=== PATIENT | male | born 2000 | race Caucasian/White ===

== ENCOUNTER 2021-05-29 16:28 | Emergency (ER) | payer OTHER ==
[~2021-05-29] VITALS: Ht 188 cm; Wt 103.6 kg
[2021-05-29] MEDS ORDERED: LEXA1TAB2 PO (16:32)
[2021-05-29] MEDS ORDERED: DERMABOND TOPICAL SKIN ADHESIVE TOP ONE (20:30)
[2021-05-29] MEDS ORDERED: CEPH500C PO ×2 (21:07→21:09)
[2021-05-29] MEDS ORDERED: CEPHALEXIN 500 MG CAP PO ONE (21:10)
[2021-05-29 21:28] VITALS: BP 132/78
== END 2021-05-29 21:30 | disposition home or self-care (01) ==
LOC: M ED 16:28
DX: S61.012A Laceration without foreign body of left thumb without damage to nail, initial encounter (principal); W26.8XXA Contact with other sharp object(s), not elsewhere classified, initial encounter; Y92.018 Other place in single-family (private) house as the place of occurrence of the external cause; F41.9 Anxiety disorder, unspecified; Z79.899 Other long term (current) drug therapy